=== PATIENT | female | born 1980 | race Caucasian/White ===

== ENCOUNTER 2023-01-31 15:59 | Emergency (ER) | payer SELFPAY ==
[~2023-01-31] VITALS: Ht 157.5 cm; Wt 72.6 kg
[2023-01-31 16:32] VITALS: BP 103/59; PULSE 72; RESP 18; TEMP 97; O2SAT 98
[2023-01-31] MEDS ORDERED: ACET-9882 PO (17:01)
[2023-01-31 17:09] VITALS: BP 110/62; PULSE 72; RESP 18; TEMP 98; O2SAT 99
== END 2023-01-31 17:09 | disposition home or self-care (01) ==
LOC: MED 15:59
DX: S09.90XA Unspecified injury of head, initial encounter (principal); W20.8XXA Other cause of strike by thrown, projected or falling object, initial encounter; Y93.89 Activity, other specified; Y92.89 Other specified places as the place of occurrence of the external cause; Y99.8 Other external cause status
CPT/HCPCS: 99282